=== PATIENT | male | born 1975 | race Caucasian/White ===

== ENCOUNTER 2019-06-09 18:36 | Inpatient (IN) | payer BC ==
[2019-06-09 19:29] LABS: ABS Basophils 0.1 10^3/ul (0-0.2); ABS Lymphocytes 1.4 10^3/ul (1.0-4.8); ABS Neutrophils 11.3 10^3/ul (1.5-7.7); Eosinophil % 0.1 %; Hematocrit 40 % (42-52); Hemoglobin 14.1 g/dL (14.0-18.0); Lymphocyte % 10.1 %; Mean Corpuscular HGB Conc 35 g/dL (31-36); Mean Corpuscular Hemoglobin 32 pg (27-31); Mean Corpuscular Volume 91 fL (80-94); Mean Platelet Volume 8.1 fL (7.4-10.4); Platelet Count 155 10^3/uL (150-450); Red Blood Count 4.43 10^6 /uL (4.18-5.48); Red Cell Distribution Width 13 % (10-15); White Blood Count 13.9 10^3/uL (3.5-10.8)
[2019-06-09 19:48] LABS: Albumin 4.2 g/dL (3.2-5.2); Albumin/Globulin Ratio 1.5 (1-3); BUN/Creatinine Ratio 13.8 (8-20); C Reactive Protein 122.78 mg/L (<8.01); Calcium 8.5 mg/dL (8.6-10.3); EGFR Non-African American 86.8 (>60); Globulin 2.8 g/dL (2-4); Potassium 3.6 mmol/L (3.5-5.0); Total Bilirubin 1.4 mg/dL (0.2-1.0)
[2019-06-09] MEDS ORDERED: Ketorolac INJ* 30 MG/ML 1 ML VIAL IV PUSH ONE (21:44)
[2019-06-09] MEDS: NS 0.9% 1000 ML** 2,000 ML IV ONE ×2 (21:50→22:28)
--- NOTE | 2019-06-09 22:23 | ED ---
GI/ HPI - HPI Summary HPI Summary: 44-year-old male presents with abdominal pain for the past 2 days. He states it is located across his lower abdomen. He states that is pretty sharp in nature. He states the pain is pretty severe. He denies any chest pressures or shortness breath. No urinary symptoms. Has never had this pain before. Does have a family history of diverticulitis. No previous abdominal surgeries. He states he's been constipated but has been passing gas. - History of Current Complaint Chief Complaint: EDAbdPain Time Seen by Provider: 06/09/19 21:33 Stated Complaint: ABD PAIN PER PT Pain Intensity: 7 - Allergy/Home Medications Allergies/Adverse Reactions: Allergies Allergy/AdvReac Type Severity Reaction Status Date / Time No Known Allergies Allergy Verified 06/09/19 18:41 Home Medications: Home Medications Acetaminophen TAB* [Tylenol TAB*] 650 mg PO Q4H PRN 06/09/19 [History Confirmed 06/09/19] PMH/Surg Hx/FS Hx/Imm Hx Endocrine/Hematology History: Denies: Hx Anticoagulant Therapy Respiratory History: Denies: Hx Asthma Sensory History: Reports: Hx Contacts or Glasses - GLASSES Denies: Hx Hearing Aid Opthamlomology History: Reports: Hx Contacts or Glasses - GLASSES Neurological History: Reports: Hx Migraine - OCCASIONAL - Surgical History Surgery Procedure, Year, and Place: 30 YRS AGO [facility] 8 YS OLD-. ARTH KNEE SURG - [place]. NASAL FX- [place]. vasectomy Hx Anesthesia Reactions: No Infectious Disease History: No Infectious Disease History: Denies: Traveled Outside the [place] in Last 30 Days - Family History Known Family History: Positive: Non-Contributory - Social History Alcohol Use: Occasionally Alcohol Amount: 2-3 DRINKS/WEEK Substance Use Type: Reports: None Smoking Status (MU): Never Smoked Tobacco Have You Smoked in the Last Year: No Review of Systems Negative: Fever Negative: Chest Pain Negative: Shortness Of Breath Positive: Abdominal Pain, Nausea. Negative: Vomiting, Diarrhea Positive: Headache All Other Systems Reviewed And Are Negative: Yes Physical Exam Triage Information Reviewed: Yes Vital Signs On Initial Exam: Initial Vitals Temp Pulse Resp BP Pulse Ox 98.3 F 82 16 135/90 98 06/09/19 18:38 06/09/19 18:38 06/09/19 18:38 06/09/19 18:38 06/09/19 18:38 Vital Signs Reviewed: Yes Appearance: Positive: Well-Appearing Skin: Positive: Warm, Dry Head/Face: Positive: Normal Head/Face Inspection Eyes: Positive: Normal, Conjunctiva Clear ENT: Positive: Pharynx normal Respiratory/Lung Sounds: Positive: Clear to Auscultation, Breath Sounds Present Cardiovascular: Positive: Normal, RRR Abdomen Description: Positive: Soft, Other: - tenderness in lower abd Bowel Sounds: Positive: Present Musculoskeletal: Positive: Normal Neurological: Positive: Normal Psychiatric: Positive: Normal Diagnostics - Vital Signs Vital Signs Temp Pulse Resp BP Pulse Ox 06/09/19 21:06 99.1 F 85 18 120/86 99 06/09/19 18:38 98.3 F 82 16 135/90 98 - Laboratory Lab Results: Lab Results 06/09/19 06/09/19 06/09/19 Range/Units 19:19 19:19 19:19 WBC 13.9 H (3.5-10.8) 10^3/uL RBC 4.43 (4.18-5.48) 10^6 /uL Hgb 14.1 (14.0-18.0) g/dL Hct 40 L (42-52) % MCV 91 (80-94) fL MCH 32 H (27-31) pg MCHC 35 (31-36) g/dL RDW 13 (10-15) % Plt Count 155 (150-450) 10^3/uL MPV 8.1 (7.4-10.4) fL Neut % (Auto) 81.6 % Lymph % (Auto) 10.1 % Will % (Auto) 7.4 % Eos % (Auto) 0.1 % Baso % (Auto) 0.8 % Absolute Neuts (auto) 11.3 H (1.5-7.7) 10^3/ul Absolute Lymphs (auto) 1.4 (1.0-4.8) 10^3/ul Absolute Monos (auto) 1.0 H (0-0.8) 10^3/ul Absolute Eos (auto) 0.0 (0-0.6) 10^3/ul Absolute Basos (auto) 0.1 (0-0.2) 10^3/ul Absolute Nucleated RBC 0.0 10^3/ul Nucleated RBC % 0.0 Sodium 137 (135-145) mmol/L Potassium 3.6 (3.5-5.0) mmol/L Chloride 102 (101-111) mmol/L Carbon Dioxide 30 (22-32) mmol/L Anion Gap 5 (2-11) mmol/L BUN 13 (6-24) mg/dL Creatinine 0.94 (0.67-1.17) mg/dL Est GFR ( Amer) 105.0 (>60) Est GFR (Non-Af Amer) 86.8 (>60) BUN/Creatinine Ratio 13.8 (8-20) Glucose 102 H (70-100) mg/dL Lactic Acid 0.9 (0.5-2.0) mmol/L Calcium 8.5 L (8.6-10.3) mg/dL Total Bilirubin 1.40 H (0.2-1.0) mg/dL AST 15 (13-39) U/L ALT 14 (7-52) U/L Alkaline Phosphatase 76 (34-104) U/L C-Reactive Protein 122.78 H (<8.01) mg/L Total Protein 7.0 (6.4-8.9) g/dL Albumin 4.2 (3.2-5.2) g/dL Globulin 2.8 (2-4) g/dL Albumin/Globulin Ratio 1.5 (1-3) Lipase 20 (11.0-82.0) U/L Result Diagrams: 06/09/19 19:19 06/09/19 19:19 Lab Statement: Any lab studies that have been ordered have been reviewed, and results considered in the medical decision making process. - CT abd CT Interpretation Completed By: Radiologist Summary of CT Findings: IMPRESSION: 1. Findings consistent with acute sigmoid diverticulitis with contained perforation. No evidence of abscess. As an underlying malignancy cannot be entirely excluded, a follow-up examination after a course of treatment is recommended if clinically warranted. 2. Small amount of free intraperitoneal fluid. Re-Evaluation - Re-Evaluation First Eval Re-Evaluation Time: 22:57 Change: Improved Comment: feeling better Second Eval Re-Evaluation Time: 00:51 Comment: discussed results, pain is returning GIGU Course/Dx - Course Course Of Treatment: 44-year-old male presents with abdominal pain for the past 2 days. He states it is located across his lower abdomen. He states that is pretty sharp in nature. He states the pain is pretty severe. He denies any chest pressures or shortness breath. No urinary symptoms. Has never had this pain before. Does have a family history of diverticulitis. No previous abdominal surgeries. He states he's been constipated but has been passing gas. On exam tenderness lower abdomen. wbc 13. crp elevated. electrolytes normal. CT shows sigmoid diverticulitis with microperfortation. discussed case with dr norwood who agrees to admit. - Diagnoses Differential Diagnoses - Male: Colitis, Diverticulosis, Urinary Tract Infection Provider Diagnoses: Perforation of sigmoid colon due to diverticulitis Discharge ED - Sign-Out/Discharge Documenting (check all that apply): Patient Departure - Discharge Plan Condition: Stable Disposition: ADMITTED TO [facility] - Billing Disposition and Condition Condition: STABLE Disposition: Admitted to [facility]
[2019-06-09] MEDS ORDERED: Iohexol 300* (CONTRAST) 10 ML SDV IV ONE (23:46)
[2019-06-10] MEDS ORDERED: metroNIDAZOLE IV 500 MG/100ML* 500 MG/100 ML BAG IVPB ONE (00:45)
[2019-06-10] MEDS ORDERED: cefTRIAXone(*) 1 GM in NS 0.9% 50 ML* 50 ML IVPB ONE (00:50)
[2019-06-10] MEDS ORDERED: Morphine 4 MG/ML VIAL (1 ml) 4 MG/ML VIAL IV ONE (00:50)
[2019-06-10] MEDS ORDERED: Ondansetron INJ* 2 MG/ML VIAL IV ONE (00:50)
[2019-06-10] MEDS ORDERED: Morphine 4 MG/ML VIAL (1 ml) 4 MG/ML VIAL IV PRN (01:58)
[2019-06-10] MEDS ORDERED: cefTRIAXone(*) 1 GM ADVAN/BAG ONE (02:12)
[2019-06-10 03:51] LABS: Urine Appearance Clear; Urine Bilirubin Negative (Negative); Urine Blood Negative (Negative); Urine Color Yellow; Urine Glucose Negative (Negative); Urine Ketones Trace (Negative); Urine Nitrite Negative (Negative); Urine Protein Negative (Negative); Urine Specific Gravity 1.059 (1.010-1.030); Urine Urobilinogen Negative (Negative)
--- NOTE | 2019-06-10 04:24 | HP ---
CC: Dr. Leon * HISTORY AND PHYSICAL: DATE OF ADMISSION: 06/10/19 PRIMARY CARE PROVIDER: Dr. Leon. CHIEF COMPLAINT: Abdominal pain. HISTORY OF PRESENT ILLNESS: Mr. Gallagher is a 44-year-old male who states he was eating dinner on 06/07/19 when he started to develop left lower quadrant abdominal pain. He states the pain got progressively worse over the last 2 days. He describes the pain as severe cramping as if he needs to have on urgent bowel movement. He notes that on the evening of 06/08/19, he had a fever of 102.5 at home. Due to the progressive pain, he presented to the emergency room for evaluation. He also notes that his abdomen feels distended. He has not really been moving his bowels, but states that when he does try to go, he passes quite a bit of gas and just a little bit of liquid. There has been no blood in the stool. PAST MEDICAL HISTORY: Migraines. PAST SURGICAL HISTORY: 1. Arthroscopic knee surgery. 2. Inguinal hernia repair. 3. Cystectomy. MEDICATIONS: P.r.n. Advil. ALLERGIES: No known drug allergies. FAMILY HISTORY: Mom is living, she is in her 60s and has OA. Dad is also living in his 60s and healthy. SOCIAL HISTORY: The patient does not smoke. He drinks alcohol rarely. 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 He is . He has 2 children. His is his healthcare proxy. REVIEW OF SYSTEMS: A complete 11-system review of systems is obtained. Pertinent positives and negatives are as per HPI and otherwise negative. PHYSICAL EXAMINATION GENERAL: The patient is a well-developed, middle-aged male, seen lying flat in the stretcher, in no acute distress. VITAL SIGNS: Blood pressure 108/56, pulse 69, respirations 20, temp 99.1, O2 sat 99% on room air. HEENT: Pupils are equal and round. Extraocular muscles are intact. Oropharynx is clear. Oral mucosa is moist. There is no submandibular, cervical , or supraclavicular adenopathy. Thyroid is not enlarged. No thyroid nodules noted. PULMONARY: Lungs are clear to auscultation bilaterally. CARDIAC: Normal S1, S2. Regular rate and rhythm. I do not appreciate any murmurs. There is no lower extremity edema. ABDOMEN: Bowel sounds are present. Abdomen is mildly distended. He is mildly tender to palpation diffusely, but worse in the left lower quadrant (of note, the patient recently had morphine, states his pain is under much better control) . MUSCULOSKELETAL: There is no cyanosis or clubbing of the digits. There is full active range of motion of all 4 extremities. NEURO: Cranial nerves II through XII are grossly intact. Sensation is intact to light touch throughout. PSYCH: The patient is alert. He is oriented x3. Affect appears appropriate. SKIN: Warm and dry. There are no rashes. DIAGNOSTIC STUDIES/LAB DATA: WBC 13.9, hemoglobin 14.1, hematocrit 40, platelets 155. Sodium 137, potassium 3.6, chloride 102, CO2 of 30, BUN 13, creatinine 0.94, glucose 102, lactic acid 0.9, calcium 8.5. Bilirubin 1.4, AST 15, ALT 14, alk phos 76, CRP 122.78, albumin is 4.2, lipase 20. CT abdomen and pelvis, findings consistent with acute sigmoid diverticulitis with contained perforation. No evidence of abscess. An underlying malignancy cannot be excluded. A followup examination after a course of treatment is recommended if clinically warranted. There is a small amount of free intraperitoneal fluid. ASSESSMENT AND PLAN: Mr. Gallagher is a 44-year-old male with no significant past medical history who presents to the emergency room with complaints of progressive left lower quadrant abdominal pain, was found to have acute diverticulitis with microperforation. 1. Acute diverticulitis with microperforation. At this point, the patient will be admitted to the hospital for IV antibiotics and IV fluids. He will be on clear liquid diet. He will be receiving Cipro and Flagyl IV. General Surgery consultation should be called later this morning. We will continue p.r.n. morphine for pain control as he states that his pain is now manageable after the morphine in the emergency room. 2. Migraines. The patient utilizes p.r.n. NSAIDs for pain. This will be held while hospitalized, but he can resume on discharge. 3. DVT prophylaxis. According to the Adult Thrombosis Prophylaxis Risk Factor Assessment Guide, the patient has a total risk factor score of 2, making him moderate risk. He will be started on Lovenox 40 mg subcutaneous daily. 4. Code status is full. TIME SPENT: Fifty minutes was spent admitting this patient. [id number]/[facility] #: [id number] [facility]
[2019-06-10] MEDS: Ciprofloxacin 400MG IVPREMIX(* 400 MG/200 ML BAG IVPB SCH ×2 (06:30→17:36)
[2019-06-10] MEDS ORDERED: Ketorolac INJ* 30 MG/ML 1 ML VIAL IV PUSH STA (08:19)
--- NOTE | 2019-06-10 08:33 | PN ---
Subjective Date of Service: 06/10/19 Interval History: Patient complained of headache, frontal mainly, non pulsatile. He had history of migraine, was on prophylatic med before. His abdominal pain is mainly left lower quadrant, improving with morphine. Objective Active Medications: Enoxaparin Sodium (Lovenox(*)) 40 mg SUBCUT Q24H ON LICENSE OF [facility] Sodium Chloride (Ns 0.9% 1000 Ml) 1,000 mls @ 100 mls/hr IV PER RATE ON LICENSE OF [facility] Ciprofloxacin/Dextrose (Cipro 400 Mg Ivpremix(*)) 400 mg in 200 mls @ 200 mls/ hr IVPB Q12H ON LICENSE OF [facility]; Protocol Last Admin: 06/10/19 06:30 Dose: 200 mls/hr Metronidazole/Sodium Chloride (Flagyl 500 Mg Ivpb*) 500 mg in 100 mls @ 100 mls /hr IVPB Q12H ON LICENSE OF [facility] Morphine Sulfate (Morphine 4 Mg/Ml Vial (1 Ml)) 4 mg IV Q4H PRN PRN Reason: PAIN - SEVERE Vital Signs - 8 hr 06/10/19 06/10/19 06/10/19 00:42 00:58 01:04 Temperature Pulse Rate 75 78 Respiratory 20 Rate Blood Pressure (mmHg) O2 Sat by Pulse 97 96 Oximetry 06/10/19 06/10/19 06/10/19 01:18 01:48 02:01 Temperature Pulse Rate 77 80 80 Respiratory Rate Blood Pressure 127/73 104/56 (mmHg) O2 Sat by Pulse 95 97 95 Oximetry 06/10/19 06/10/19 06/10/19 02:18 02:24 03:06 Temperature 98.0 F Pulse Rate 76 76 Respiratory 17 18 Rate Blood Pressure 112/71 112/71 (mmHg) O2 Sat by Pulse 97 98 Oximetry 06/10/19 03:20 Temperature 97.7 F Pulse Rate 76 Respiratory 17 Rate Blood Pressure 116/64 (mmHg) O2 Sat by Pulse 96 Oximetry Oxygen Devices in Use Now: None Exam: General - NAD, sick looking Eyes - PERRLA, EOM intact HEENT- no abnormality Lymph Nodes - No lymphadenopathy Cardiovascular - RRR no m/r/g, no JVD, no carotid bruits Lungs - Clear to auscltation, no use of acessory muscles, no crackles or wheezes. Skin - No rashes, skin warm and dry, no erythematous areas Abdomen: LLQ tenderness, no rebound tenderness, abdomen soft; shift dullness+. Extremeties - No edema, cyanosis or clubbing Musculo Skeletal - 5/5 strength, normal range of motion, no swollen or erythematous joints. Neurological Alert and oriented x 3, CN 2-12 grossly intact. Psychiatry- mood is good Result Diagrams: 06/09/19 19:19 06/09/19 19:19 Additional Lab and Data: Lab Results 06/09/19 06/09/19 06/09/19 Range/Units 19:19 19:19 19:19 WBC 13.9 H (3.5-10.8) 10^3/uL RBC 4.43 (4.18-5.48) 10^6 /uL Hgb 14.1 (14.0-18.0) g/dL Hct 40 L (42-52) % MCV 91 (80-94) fL MCH 32 H (27-31) pg MCHC 35 (31-36) g/dL RDW 13 (10-15) % Plt Count 155 (150-450) 10^3/uL MPV 8.1 (7.4-10.4) fL Neut % (Auto) 81.6 % Lymph % (Auto) 10.1 % [place] % (Auto) 7.4 % Eos % (Auto) 0.1 % Baso % (Auto) 0.8 % Absolute Neuts (auto) 11.3 H (1.5-7.7) 10^3/ul Absolute Lymphs (auto) 1.4 (1.0-4.8) 10^3/ul Absolute Monos (auto) 1.0 H (0-0.8) 10^3/ul Absolute Eos (auto) 0.0 (0-0.6) 10^3/ul Absolute Basos (auto) 0.1 (0-0.2) 10^3/ul Absolute Nucleated RBC 0.0 10^3/ul Nucleated RBC % 0.0 Sodium 137 (135-145) mmol/L Potassium 3.6 (3.5-5.0) mmol/L Chloride 102 (101-111) mmol/L Carbon Dioxide 30 (22-32) mmol/L Anion Gap 5 (2-11) mmol/L BUN 13 (6-24) mg/dL Creatinine 0.94 (0.67-1.17) mg/dL Est GFR ( Amer) 105.0 (>60) Est GFR (Non-Af Amer) 86.8 (>60) BUN/Creatinine Ratio 13.8 (8-20) Glucose 102 H (70-100) mg/dL Lactic Acid 0.9 (0.5-2.0) mmol/L Calcium 8.5 L (8.6-10.3) mg/dL Total Bilirubin 1.40 H (0.2-1.0) mg/dL AST 15 (13-39) U/L ALT 14 (7-52) U/L Alkaline Phosphatase 76 (34-104) U/L C-Reactive Protein 122.78 H (<8.01) mg/L Total Protein 7.0 (6.4-8.9) g/dL Albumin 4.2 (3.2-5.2) g/dL Globulin 2.8 (2-4) g/dL Albumin/Globulin Ratio 1.5 (1-3) Lipase 20 (11.0-82.0) U/L Assess/Plan/Problems-Billing Assessment: 44 y/o gentleman with minimal history presented with abdominal pain for 2 days duration, and fever. He was found to have acute diverticulitis with microperforation. - Patient Problems (1) Diverticulitis Current Visit: Yes Status: Acute Code(s): K57.92 - DVTRCLI OF INTEST, PART UNSP, W/O PERF OR ABSCESS W/O BLEED SNOMED Code(s): 298754472 Comment: Acute diverticulitis with microperforation IV cipro and flagyl iv morphine for pain control surgical consult today (2) Migraine Current Visit: Yes Status: Acute Code(s): G43.909 - MIGRAINE, UNSP, NOT INTRACTABLE, WITHOUT STATUS MIGRAINOSUS SNOMED Code(s): 15404888 (3) DVT prophylaxis Current Visit: Yes Status: Acute Code(s): Z29.9 - ENCOUNTER FOR PROPHYLACTIC MEASURES, UNSPECIFIED SNOMED Code(s): 704220918 Comment: sq Lovonox (4) Full code status Current Visit: Yes Status: Acute Code(s): Z78.9 - OTHER SPECIFIED HEALTH STATUS SNOMED Code(s): 793925071 Status and Disposition: Inpatient Medicine Attestation Documenting Resident: Shaniqua Hudson Supervising Physician: Osmin Sánchez Attending/Supervising Physician Comment: Migraine- Can use SC imitrex if headache worsening. For now, rectal acetaminophen may be helpful. Attestation: This service has been performed in part by a resident under the direction of a teaching physician.I, Osmin Sánchez, performed the service, or was physically present during the critical, or stout portions of the service, furnished by the resident. I participated in the management of the patient.
[2019-06-10] MEDS: NS 0.9% 1000 ML** 1,000 ML IV SCH ×2 (08:53→15:10)
--- NOTE | 2019-06-10 10:49 | CONS ---
CONSULTATION REPORT: DATE OF CONSULT: 06/10/19 CHIEF COMPLAINT: Abdominal pain, diverticulitis. HISTORY OF PRESENT ILLNESS: This is a pleasant 44-year-old gentleman who was admitted for treatment of diverticulitis by the hospitalist service. He has had pain since 06/07/19. He came into the emergency room last night. The pain has been progressive over the last 2 days in the left lower quadrant. There has been some cramping. He had a fever of 102.5 at home. He has had some bowel movements and flatus. PAST MEDICAL HISTORY: Migraines. PAST SURGICAL HISTORY: 1. Inguinal hernia repair as a child. 2. Cystectomy. 3. Arthroscopic knee surgery. MEDICATIONS: Advil p.r.n. ALLERGIES: No known drug allergies. FAMILY HISTORY: His father had diverticulitis. SOCIAL HISTORY: Nonsmoker. 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 REVIEW OF SYSTEMS: General: Denies weight loss and change of appetite. HEENT : No changes in vision, hearing, swallowing. No sore throat. Cardiac: No chest pain. Pulmonary: No cough. GI: No blood per rectum. : No hematuria. Skin: Denies rash. Neuro: No headache or dizziness. Musculoskeletal: No extremity weakness. Psych: No anxiety or depression. PHYSICAL EXAM: General: Pleasant gentleman complaining of a headache. He was lying in bed with an ice pack on his forehead. HEENT: The sclerae are anicteric. Oral mucosa is pink and moist. Neck is supple. Heart: Regular. Lungs are clear. Abdomen: Soft, nondistended. Tender in the left lower quadrant. No masses or organomegaly. Extremities: No clubbing, cyanosis, or edema. Neuro Exam: Grossly intact. No focal motor or sensory deficits. Skin : No rashes, petechiae, or jaundice. IMPRESSION: Diverticulitis. CT scan showed "microperforation" contained inflammation. No obvious abscess. He is clinically better than last night according to the patient. PLAN/RECOMMENDATIONS: Plan will be for a clear liquid diet to help with his migraines. He may have coffee. Serial abdominal examination and evaluation. Continue with broad spectrum IV antibiotics. He will need eventual colonoscopy , which I could do after an office visit when he has resolved this episode. He may need surgical intervention at some point. [id number]/[facility] #: [id number] MARCO A
[2019-06-10] MEDS: metroNIDAZOLE IV 500 MG/100ML* 500 MG/100 ML BAG IVPB SCH (13:19)
[2019-06-10] MEDS: Ibuprofen ADULT LIQ* 600 MG/30 ML UDC PO PRN (20:30)
[2019-06-10] MEDS: Enoxaparin(*) 40 MG/0.4 ML SYR SUBCUT SCH (20:31)
[2019-06-11] MEDS: metroNIDAZOLE IV 500 MG/100ML* 500 MG/100 ML BAG IVPB SCH ×2 (00:59→12:37)
[2019-06-11] MEDS: NS 0.9% 1000 ML** 1,000 ML IV SCH ×2 (03:18→16:37)
[2019-06-11] MEDS: Ciprofloxacin 400MG IVPREMIX(* 400 MG/200 ML BAG IVPB SCH ×2 (05:44→16:36)
[2019-06-11] MEDS: Ibuprofen ADULT LIQ* 600 MG/30 ML UDC PO PRN (09:55)
--- NOTE | 2019-06-11 11:30 | PN ---
Progress Note - Progress Note Date of Service: 06/11/19 SOAP: Subjective:minimal pain,tolerated a full liq breakfast;no nausea;having loose stools [] Objective: Vital Signs Temp 97.7 F 06/11/19 07:15 Pulse 62 06/11/19 07:15 Resp 20 06/11/19 08:00 BP 126/87 06/11/19 07:15 Pulse Ox 100 06/11/19 07:15 Intake & Output 06/10/19 06/11/19 06/11/19 18:59 06:59 18:59 Intake Total 2699 855 1440 Balance 2699 855 1440 Intake: IV Fluids 305 745 Ciprofloxacin 200 Flagyl 105 NS 745 IVPB 1124 110 Flagyl 110 NS 1124 Oral 1270 0 1440 Other: # Voids 1 abd:+bs,softly distended;minimal LLQ tenderness,no guarding,no mass effect [] Assessment:first episode of diverticulitis,microperf,no abscess;afebrile,feels better [] Plan:dispo per Hospitalist recommends 7days of Cipro and Flagyl when he is discharged I ordered a Nutrition consult for low fiber diet teaching I will schedule an office visit with in about 2-3 weeks []
--- NOTE | 2019-06-11 16:45 | PN ---
Subjective Date of Service: 06/11/19 Interval History: Patient still had abdominal pain, but less severe. Headache also improved, pain score 3-4/10. He is tolerating clear fluid diet, but noted diarrhea. He also complained of testicle swelling today, but no dysuria, no pain, no warmth over the area. Objective Active Medications: Enoxaparin Sodium (Lovenox(*)) 40 mg SUBCUT Q24H SHERLEY Last Admin: 06/10/19 20:31 Dose: 40 mg Sodium Chloride (Ns 0.9% 1000 Ml) 1,000 mls @ 100 mls/hr IV PER RATE SHERLEY Last Admin: 06/11/19 16:37 Dose: 100 mls/hr Ciprofloxacin/Dextrose (Cipro 400 Mg Ivpremix(*)) 400 mg in 200 mls @ 200 mls/ hr IVPB Q12H SHERLEY; Protocol Last Admin: 06/11/19 16:36 Dose: 200 mls/hr Metronidazole/Sodium Chloride (Flagyl 500 Mg Ivpb*) 500 mg in 100 mls @ 100 mls /hr IVPB Q12H SHERLEY Last Admin: 06/11/19 12:37 Dose: 100 mls/hr Ibuprofen (Motrin Liq Adult*) 600 mg PO TID PRN PRN Reason: MILD PAIN or TEMP > 100.4 Last Admin: 06/11/19 09:55 Dose: 600 mg Morphine Sulfate (Morphine 4 Mg/Ml Vial (1 Ml)) 4 mg IV Q4H PRN PRN Reason: PAIN - SEVERE Vital Signs - 8 hr 06/11/19 11:15 Temperature 98.2 F Pulse Rate 75 Respiratory 12 Rate Blood Pressure 134/79 (mmHg) O2 Sat by Pulse 99 Oximetry Oxygen Devices in Use Now: None Exam: General - NAD, sitting up in bed Eyes - PERRLA, EOM intact HEENT- no abnormality Cardiovascular - RRR no m/r/g, no JVD, no carotid bruits Lungs - Clear to auscltation, no use of acessory muscles, no crackles or wheezes. Skin - No rashes, skin warm and dry, no erythematous areas Abdomen - tenderness over LLQ and RLQ, rebound tenderness+, no rigidity Extremeties - No edema, cyanosis or clubbing Musculo Skeletal - 5/5 strength, normal range of motion, no swollen or erythematous joints Neurological Alert and oriented x 3, CN 2-12 grossly intact. Genital- no testicle swelling or color change seen. Result Diagrams: 06/09/19 19:19 06/09/19 19:19 Additional Lab and Data: Lab Results 06/09/19 06/09/19 06/09/19 Range/Units 19:19 19:19 19:19 WBC 13.9 H (3.5-10.8) 10^3/uL RBC 4.43 (4.18-5.48) 10^6 /uL Hgb 14.1 (14.0-18.0) g/dL Hct 40 L (42-52) % MCV 91 (80-94) fL MCH 32 H (27-31) pg MCHC 35 (31-36) g/dL RDW 13 (10-15) % Plt Count 155 (150-450) 10^3/uL MPV 8.1 (7.4-10.4) fL Neut % (Auto) 81.6 % Lymph % (Auto) 10.1 % Hemphill % (Auto) 7.4 % Eos % (Auto) 0.1 % Baso % (Auto) 0.8 % Absolute Neuts (auto) 11.3 H (1.5-7.7) 10^3/ul Absolute Lymphs (auto) 1.4 (1.0-4.8) 10^3/ul Absolute Monos (auto) 1.0 H (0-0.8) 10^3/ul Absolute Eos (auto) 0.0 (0-0.6) 10^3/ul Absolute Basos (auto) 0.1 (0-0.2) 10^3/ul Absolute Nucleated RBC 0.0 10^3/ul Nucleated RBC % 0.0 Sodium 137 (135-145) mmol/L Potassium 3.6 (3.5-5.0) mmol/L Chloride 102 (101-111) mmol/L Carbon Dioxide 30 (22-32) mmol/L Anion Gap 5 (2-11) mmol/L BUN 13 (6-24) mg/dL Creatinine 0.94 (0.67-1.17) mg/dL Est GFR ( Amer) 105.0 (>60) Est GFR (Non-Af Amer) 86.8 (>60) BUN/Creatinine Ratio 13.8 (8-20) Glucose 102 H (70-100) mg/dL Lactic Acid 0.9 (0.5-2.0) mmol/L Calcium 8.5 L (8.6-10.3) mg/dL Total Bilirubin 1.40 H (0.2-1.0) mg/dL AST 15 (13-39) U/L ALT 14 (7-52) U/L Alkaline Phosphatase 76 (34-104) U/L C-Reactive Protein 122.78 H (<8.01) mg/L Total Protein 7.0 (6.4-8.9) g/dL Albumin 4.2 (3.2-5.2) g/dL Globulin 2.8 (2-4) g/dL Albumin/Globulin Ratio 1.5 (1-3) Lipase 20 (11.0-82.0) U/L Assess/Plan/Problems-Billing Assessment: 44 y/o gentleman with minimal history presented with abdominal pain for 2 days duration, and fever. He was found to have acute diverticulitis with microperforation. - Patient Problems (1) Diverticulitis Current Visit: Yes Status: Acute Code(s): K57.92 - DVTRCLI OF INTEST, PART UNSP, W/O PERF OR ABSCESS W/O BLEED SNOMED Code(s): 317151020 Comment: Acute diverticulitis with microperforation for medical management for now, may need surgical management later on IV cipro and flagyl for 7 days advance diet (2) Migraine Current Visit: Yes Status: Acute Code(s): G43.909 - MIGRAINE, UNSP, NOT INTRACTABLE, WITHOUT STATUS MIGRAINOSUS SNOMED Code(s): 97419513 Comment: ibuprofen for pain control bad exprience imitrex before (3) DVT prophylaxis Current Visit: Yes Status: Acute Code(s): Z29.9 - ENCOUNTER FOR PROPHYLACTIC MEASURES, UNSPECIFIED SNOMED Code(s): 914880509 Comment: sq Lovonox (4) Full code status Current Visit: Yes Status: Acute Code(s): Z78.9 - OTHER SPECIFIED HEALTH STATUS SNOMED Code(s): 267850524 Status and Disposition: Inpatient Medicine, aim for discharge once patient able to tolerate diet. Attestation Documenting Resident: Shaniqua Hudson Supervising Physician: Osmin Sánchez Attestation: This service has been performed in part by a resident under the direction of a teaching physician.I, Osmin Sánchez, performed the service, or was physically present during the critical, or stout portions of the service, furnished by the resident. I participated in the management of the patient.
[2019-06-11] MEDS: Enoxaparin(*) 40 MG/0.4 ML SYR SUBCUT SCH (22:01)
[2019-06-12] MEDS: metroNIDAZOLE IV 500 MG/100ML* 500 MG/100 ML BAG IVPB SCH (01:40)
[2019-06-12] MEDS: Ciprofloxacin 400MG IVPREMIX(* 400 MG/200 ML BAG IVPB SCH (06:05)
[2019-06-12] MEDS: Ibuprofen ADULT LIQ* 600 MG/30 ML UDC PO PRN (06:08)
--- NOTE | 2019-06-12 10:47 | PN ---
Progress Note - Progress Note Date of Service: 06/12/19 SOAP: Subjective: Migraine headache is main complaint Abd pain much improved-tolerating liquids, loose bowel movements Objective: Temp Pulse Resp BP Pulse Ox 98.4 F 54 18 122/76 96 06/12/19 07:15 06/12/19 07:15 06/12/19 07:15 06/12/19 07:15 06/12/19 07:15 PEX: Comfortable Abd is soft and non-distended. Bowel sounds are present. No tenderness LLQ, no mass Assessment: Sigmoid diverticulitis-improving Tolerating po Plan: OK for D/C from surgical standpoint on oral antibiotics Low residue diet Surgical follow up in office arranged-see d/c plan documentation He will require colonoscopy when completely recovered.
[2019-06-12 11:46] VITALS: BP 154/87
--- NOTE | 2019-06-13 12:36 | DS ---
CC: Dr. Leon [facility] DISCHARGE SUMMARY: DATE OF ADMISSION: 06/10/19 DATE OF DISCHARGE: 06/12/19 PRIMARY DIAGNOSIS: Diverticulitis with microperforation. SECONDARY DIAGNOSES: 1. Migraine headaches. 2. Overweight. 3. Osteoarthritis. MEDICATIONS ON DISCHARGE: 1. Tylenol 650 mg p.o. q.4 hours p.r.n. pain. 2. Ibuprofen 600 mg p.o. q.6 hours p.r.n. pain. 3. Ciprofloxacin 500 mg p.o. b.i.d. 4. Metronidazole 500 mg p.o. t.i.d. for 5 days. 5. Zolmitriptan 2.5 mg 1 tab every 2 hours, MDD 2, p.r.n. for migraines. HOSPITAL COURSE: A 44-year-old man with medical history notable for migraines [facility] lower quadrant pain worsening over 2 days. He had a temperature of 102 .5 at home. Initial white count was 13.9, hematocrit was 40%; electrolytes essentially normal; lacti c acid 0.9. His CT abdomen and pelvis showed acute sigmoid diverticulitis with a small perforation, no abscess formation. The patient was admitted to the hospital and treated with intravenous Cipro an d Flagyl. General surgery consultation was obtained with Dr. Diaz, who reviewed the CT scan and patient exam, recommended continued broad- spectrum antibiotics. He also advised the patient have a colonoscopy in several weeks when the clinical syndrome is cleared. The patient improved steadily with intravenous antibiotics treatment and was able to tolerate liquid diet upon discharge. The patient also had significant migraine headaches which were treated with ibuprofen and Tylenol. T he patient has had some mood changes with Imitrex in the past. We decided to offer him a trial of zo lmitriptan on discharge. DISPOSITION: To home. CONDITION: Stable. STATUS: Inpatient. DIET: Low fiber. ACTIVITY: As tolerated. [id number]/[facility] #: [id number]
== END 2019-06-12 13:50 | disposition home or self-care (01) | DRG 244 ==
LOC: ED 18:36 → MED 06-10 01:58
PROVIDERS: ADMIT Hospitalist; ATTEND Internal Medicine
DX: K57.20 Diverticulitis of large intestine with perforation and abscess without bleeding (principal); E66.3 Overweight; M19.90 Unspecified osteoarthritis, unspecified site; G43.909 Migraine, unspecified, not intractable, without status migrainosus; Z68.28 Body mass index [BMI] 28.0-28.9, adult; Z79.1 Long term (current) use of non-steroidal anti-inflammatories (NSAID); Z82.61 Family history of arthritis
CPT/HCPCS: 36415; 74177; 80053; 81003; 83605; 83690; 85025; 86140; 99284; A9270-GY; J0696; J0744; J1650; J1885; J2270; J2405; Q9967

== ENCOUNTER 2019-08-08 09:07 | Emergency (ER) | payer BC ==
--- OUTSIDE RECORDS SUMMARY | 2019-08-08 09:14 | XMS REPORT | Continuity of Care Document ---
:1975 External Reference #:[id number] Author Name Kenneth Diaz MD (transmitted by agent of provider Gilma Bridges) Address [address] [place] [id number] Care Team Providers Name Role Phone Buffy Leon MD - Care Team Information External Relations Director Family Medicine Problems Description No Information Available Social History Type Date Description Comments Sex Unknown ETOH Use Occasionally consumes alcohol Tobacco Use Start: Unknown Patient has never smoked Smoking Status Reviewed: 06/29/19 Patient has never smoked Exercise Type/Frequency Exercises regularly Allergies, Adverse Reactions, Alerts Description No Known Drug Allergies Medications Active Medications SIG Qnty Indications Ordering Provider Date Advil as needed Unknown 200mg Tablets Zolmitriptan as directed Unknown 2.5mg Tablets Vitamins daily Unknown Fish Oil as directed Unknown Immunizations Description No Information Available Vital Signs Date Vital Result Comment 06/29/2019 9:40am Height 72 inches 6'0" Weight 207.00 lb Heart Rate 72 /min Respiratory Rate 12 /min Body Temperature 97.7 F BMI (Body Mass Index) 28.1 kg/m2 Results Description No Information Available Procedures Description No Information Available Medical Devices Description No Information Available Encounters Type Date Location Provider Dx Diagnosis Office Visit 06/12[facility] Sonu Campa K57.20 Dvtrcli of lg int 7:00a Of Jonny Baca MD w perforation and abscess w/o bleeding Office Visit 06/12/2019 [facility] Osmin Horowitz K57.20 Dvtrcli of lg int 1:07p Assoc,perri Sánchez M.D.,FACP w perforation and Hospitalists abscess w/o bleeding G43.909 Migraine, unsp, not intractable, without status migrainosus Office Visit 06/11/2019 [facility] Osmin Horowitz K57.20 Dvtrcli of lg int 1:06p Assning,perri Sánchez M.D.,FACP w perforation and Hospitalists abscess w/o bleeding G43.909 Migraine, unsp, not intractable, without status migrainosus Office Visit 06/11/2019 [facility]y Martinez K57.20 Dvtrcli of lg 7:00a [facility] NANCY Newell int w perforation and abscess w/o bleeding Office Visit 06/10/2019 [facility] Kenneth Rubi K57.20 Dvtrcli of lg 7:00a [facility] Diaz MD int w perforation and abscess w/o bleeding Office Visit 06/10/2019 [facility] Alaina Lino, K57.20 Dvtrcli of lg 1:05p Assoc,pc D.O. int w Hospitalists perforation and abscess w/o bleeding G43.909 Migraine, unsp, not intractable, without status migrainosus Assessments Date Code Description Provider 06/12/2019 K57.20 Diverticulitis of large intestine Sonu Baca MD with perforation and abscess without bleeding 06/12/2019 K57.20 Diverticulitis of large intestine Osmin Sánchez M.D., FACP with perforation and abscess without bleeding 06/12/2019 G43.909 Migraine, unspecified, not Osmin Sánchez M.D.,FACP intractable, without status migrainosus 06/11/2019 K57.20 Diverticulitis of large intestine Osmin Sánchez M.D., FACP with perforation and abscess without bleeding 06/11/2019 K57.20 Diverticulitis of large intestine Buffy Newell NP with perforation and abscess without bleeding 06/11/2019 G43.909 Migraine, unspecified, not Osmin Sánchez M.D.,FACP intractable, without status migrainosus 06/10/2019 K57.20 Diverticulitis of large intestine Kenneth Diaz MD with perforation and abscess without bleeding 06/10/2019 K57.20 Diverticulitis of large intestine Alaina Holland, D.O. with perforation and abscess without bleeding 06/10/2019 G43.909 Migraine, unspecified, not Alaina Armin Lino intractable, without status migrainosus Plan of Treatment No Information Available Functional Status Description No Information Available Mental Status Description No Information Available Referrals Description No Information Available
--- OUTSIDE RECORDS SUMMARY | 2019-08-08 09:14 | XMS REPORT | Summary of Care ---
:1975 Author Organization [facility] Address [address] [address] Care Team Providers Name Role Phone Buffy Leon MD Primary Care Provider Reason for Visit Reason Comments Hospital Follow Up diverticulitis Encounter Details Date Type Department Care Team Description 06/18/2019 Office Visit [facility] Practice Buffy Mackay MD Diverticulitis; [address] [facility] Chronic migraine without aura without status migrainosus, [place] [address] [phone] Allergies No Known Allergiesdocumented as of this encounter (statuses as of 06/18/2019) Medications Medication Sig Dispensed Refills Start Date End Date Status cyclobenzaprine Take 1 Tab by 10 Tab 0 08/31/2018 Active (FLEXERIL) 10 MG Oral mouth EVERY Tab BEDTIME NEEDED (jaw pain). zolmitriptan (ZOMIG) 2.5 Take 2.5 mg by 0 Active MG Oral Tab mouth [id number] MR. documented as of this encounter (statuses as of 06/18/2019) Active Problems Problem Noted Date Dyslipidemia 07/03/2016 Chronic migraine without aura without status migrainosus, not intractable documented as of this encounter (statuses as of 06/18/2019) Immunizations Name Administration Dates Next Due TDAP Vaccine 10/01/2018 documented as of this encounter Social History Tobacco Use Types Packs/Day Years Used Date Never Smoker Smokeless Tobacco: Never Used Alcohol Use Drinks/Week oz/Week Comments Yes 5 Standard drinks or equivalent 5.0 Sex Assigned at Date Recorded Not on file Job Start Date Occupation Industry Not on file Not on file Not on file Travel History Travel Start Travel End No recent travel history available. documented as of this encounter Last Filed Vital Signs Vital Sign Reading Time Taken Comments Blood Pressure 120/82 06/18/2019 11:22 AM EDT Pulse 69 06/18/2019 11:22 AM EDT Temperature 36.2 06/18/2019 11:22 AM EDT C (97.2 F) Respiratory Rate - - Oxygen Saturation 97% 06/18/2019 11:22 AM EDT Inhaled Oxygen Concentration - - Weight 98 kg (216 lb) 06/18/2019 11:22 AM EDT Height 180.3 cm (5' 11") 06/18/2019 11:22 AM EDT Body Mass Index 30.13 06/18/2019 11:22 AM EDT documented in this encounter Patient Instructions Patient InstructionsBuffy Leon MD - 06/18/2019 11:20 AM EDT Glad you are feeling better. I agree with a colonoscopy, see Dr Diaz in follow up. 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 This is caused by hard bowel movement, food, or bacteria that get stuck in the pockets. Signs and symptoms include the following: Pain in the lower left side of your abdomen Fever Nausea or vomiting Constipation or diarrhea An urge to urinate or have a bowel movement more often than usual Bloody bowel movements Bloating and gas Seek care immediately if: You have bowel movement or foul-smelling discharge leaking from your vagina or in your urine. You have severe diarrhea. You urinate less than usual or not at all. You are not able to have a bowel movement. You cannot stop vomiting. You have cramps or severe abdominal pain and a fever. You have new or increased blood in your bowel movements. Contact your healthcare provider if: You have pain when you urinate. Your symptoms get worse or do not go away. You have questions or concerns about your condition or care. Treatment may depend on how severe your diverticulitis is. You may need antibiotics to treat a bacterial infection. Take your medicine as directed. Call your healthcare provider if you think your medicine is not helping or if you have side effects. Tell him if you are allergic to any medicine. Keep alist of the medicines, vitamins, and herbs you take. Include the amounts, and when and why you take them. Bring the list or the pill bottles to follow-up visits. Carry your medicine list with you in case of an emergency. You may need surgery or other procedures to treat complications of diverticulitis. Clear liquid diet: A clear liquid diet includes any liquids that you can see through. Examples include water, jazmine-santa, cranberry or apple juice, frozen fruit ice, or broth. Stay on a clear liquid diet until your symptoms are gone, or as directed. Follow up with your healthcare provider as directed: You may need to follow up in 2 to 3 days for acolonoscopy. When your symptoms are gone, you may need a low -fat, high-fiber diet to prevent diverticulitis from developing again. Your healthcare provider or dietitian can help you create meal plans. Write down your questions so you remember to ask them during your visits. 2016 [employer]. Information is for End User's use only and may not be sold, redistributed or otherwise used for commercial purposes. All illustrations and images included in CareNotes are the copyrighted property of [employer]. or [employer]. The above information is an hospital aide only. It is not intended as medical advice for individual conditions or treatments. Talk to your doctor, nurse or pharmacist before following any medical regimen to see if it is safe and effective for you. documented in this encounter Progress Notes Buffy Leon MD - 06/18/2019 11:20 AM EDT Nursing Notes: Clementina Santiago LPN 06/18/2019 11:38 AM Signed Chief Complaint Patient presents with Hospital Follow Up diverticulitis Chief Complaint: Hospital Follow up, [facility] HPI: TCM Statement. Review of the hospitalization: I am seeing for transition of care following hospitalization. The date of discharge was: 06/10-06/12/19 The discharge diagnosis was Diverticulitis with microperforation, migraine, arthrtis. He was sent home on cipro, metronidazole which he finished yesterday, zolmitriptan. Consultands: Dr Diaz, general surgery. Patient has a follow up appointment and plan is a colonoscopy. Has appointment 06/29/19. CT abdomen: 06/09/19: Acute sigmoid diverticulitis, microperforation. No masses or enlarged LN. I reviewed the discharge summary, discharge instructions, and pertinent additional documentation obtained during hospitalization. I reconciled the medications. I also reviewed the Transition of Care documentation done by staff. The tests that were not available at the time of discharge were reviewed. Additional tests which are not yet available include: none Since hospitalization has patient improved? Improve, mildly sore No fevers. Current patient concerns: He does not like a mostly carb diverticulitis diet. He likes his vegetables and wants to resume them. Patient Active Problem List Diagnosis Chronic migraine without aura without status migrainosus, not intractable Dyslipidemia Past Medical History: Diagnosis Date BPH (benign prostatic hyperplasia) Dyslipidemia MIGRAINE 05/12/2008 diet restrictions have helped Viral wart on finger Past Surgical History: Procedure Laterality Date KNEE ARTHROSCOPY AGE 17 OPERATIONS ON NOSE AGE 17 nasal fracture repair [place] REPAIR SLIDING INGUINAL HERNIA AGE 5 LEFT VASECTOMY Outpatient Medications as of 06/18/2019 Medication Sig Dispense Refill cyclobenzaprine (FLEXERIL) 10 MG Oral Tab Take 1 Tab by mouth EVERY BEDTIME NEEDED (jaw pain). 10 Tab 0 No current facility-administered medications on file as of 06/18/2019. 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 Social Needs Financial resource strain: Not on file Food insecurity: Worry: Not on file Inability: Not on file Transportation needs: Medical: Not on file Non-medical: Not on file Tobacco Use Smoking status: Never Smoker Smokeless tobacco: Never Used Substance and Sexual Activity Alcohol use: Yes Alcohol/week: 5.0 standard drinks Types: 5 Standard drinks or equivalent per week Drug use: No Sexual activity: Yes Partners: Female Lifestyle Physical activity: Days per week: Not on file Minutes per session: Not on file Stress: Not on file Relationships Social connections: Talks on phone: Not on file Gets together: Not on file Attends tenriism service: Not on file Active member of club or organization: Not on file Attends meetings of clubs or organizations: Not on file Relationship status: Not on file Intimate partner violence: Fear of current or ex partner: Not on file Emotionally abused: Not on file Physically abused: Not on file Forced sexual activity: Not on file Other Topics Concern Back Care Not Asked Bike Helmet Not Asked Blood Transfusions Not Asked Caffeine Concern Not Asked Exercise Yes Comment: Hobby Hazards Not Asked International Travel Not Asked Service Not Asked Occupational Exposure Not Asked Seat Belt Not Asked Self-Exams Not Asked Sleep Concern Not Asked Special Diet Not Asked Stress Concern Not Asked Weight Concern Not Asked Social History Narrative . 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 Family History Problem Relation Age of Onset Arthritis Mother GI Father diverticulitis Psychiatry Sister depression Hypertension Brother No Known Problems Daughter Psychiatry Son depression Heart Maternal Grandfather OR x 4, age 55 Stroke Paternal Grandmother Health Maintenance Topic Date Due DIABETES SCREENING 1992 INFLUENZA VACCINE (1) 06/13/2019 DEPRESSION SCREENING 10/01/2019 LIPID DISORDER SCREENING 08/11/2023 HPV IMMUNIZATION SERIES Aged Out MENINGOCOCCAL VACCINE IMM Aged Out PNEUMOCOCCAL 0-64 YRS Aged Out ROS General ROS: negative for - chills or fever, unexpected weight changes ENT ROS: negative for - headaches, nasal congestion, nasal discharge, sinus pain , sore throat or visual changes Respiratory ROS: negative for - cough, shortness of breath Cardiovascular ROS: negative for - chest pain, dyspnea on exertion, edema or palpitations Gastrointestinal ROS: no change in bowel habits, or black or bloody stools; he is still a bit sore in his left lower quadrant, but overall improved Genito-Urinary ROS: no dysuria, trouble voiding Neuro: denies current headache, focal weakness, numbness Exam: BP 120/82 (BP Location: Right arm, Patient Position: Sitting) | Pulse 69 | Temp 97.2 F (36.2 C) | Ht 5' 11" (1.803 m) | Wt 216 lb (98 kg) | SpO2 97% | BMI 30.13 kg/m Physical Exam Physical Examination: General appearance - alert, well appearing, and in no distress Mental status - alert, oriented to person, place, and time, normal mood, behavior, speech, dress, motor activity, and thought processes Eyes - pupils equal, sclera anictericl Neck - supple, no cervical or supraclavicular adenopathy, carotids upstroke normal bilaterally, no bruits, thyroid exam: thyroid is normal in size without nodules or tenderness, no neck masses palpated. Chest/Lungs - clear to auscultation, no wheezes, rales or rhonchi, symmetric air entry, good aeration Heart - normal rate, regular rhythm, normal S1, S2, no murmurs, rubs, clicks or gallops Abdomen - soft, non tender on palpation, nondistended, no masses or hepatosplenomegaly, bowel soundsnormal, normal to percussion, no guarding or rebound. No costervertebral angle tenderness Neurological - alert, oriented, normal speech, no gross focal findings or movement disorder noted Extremities - dorsalis pedis pulses normal, no pedal edema, no clubbing or cyanosis ASSESSMENT/PLAN: ICD-9-CM ICD-10-CM 1. Hospital discharge follow-up V67.59 Z09 2. Diverticulitis 562.11 K57.92 3. Chronic migraine without aura without status migrainosus, not intractable 346.70 G43.709 Coordination of care. - I am satisfied that appropriate referrals are in place to deal with the problems identified during hospitalization, and that the patient has adequate community resources and support in place. I confirmed the patient's understanding of the diagnosis and plan of care. Specific education that was provided today: Patient Instructions Glad you are feeling better. I agree with a colonoscopy, see Dr Diaz in follow up. 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 This is caused by hard bowel movement, food, or bacteria that get stuck in the pockets. Signs and symptoms include the following: Pain in the lower left side of your abdomen Fever Nausea or vomiting Constipation or diarrhea An urge to urinate or have a bowel movement more often than usual Bloody bowel movements Bloating and gas Seek care immediately if: You have bowel movement or foul-smelling discharge leaking from your vagina or in your urine. You have severe diarrhea. You urinate less than usual or not at all. You are not able to have a bowel movement. You cannot stop vomiting. You have cramps or severe abdominal pain and a fever. You have new or increased blood in your bowel movements. Contact your healthcare provider if: You have pain when you urinate. Your symptoms get worse or do not go away. You have questions or concerns about your condition or care. Treatment may depend on how severe your diverticulitis is. You may need antibiotics to treat a bacterial infection. Take your medicine as directed. Call your healthcare provider if you think your medicine is not helping or if you have side effects. Tell him if you are allergic to any medicine. Keep alist of the medicines, vitamins, and herbs you take. Include the amounts, and when and why you take them. Bring the list or the pill bottles to follow-up visits. Carry your medicine list with you in case of an emergency. You may need surgery or other procedures to treat complications of diverticulitis. Clear liquid diet: A clear liquid diet includes any liquids that you can see through. Examples include water, jazmine-santa, cranberry or apple juice, frozen fruit ice, or broth. Stay on a clear liquid diet until your symptoms are gone, or as directed. Follow up with your healthcare provider as directed: You may need to follow up in 2 to 3 days for acolonoscopy. When your symptoms are gone, you may need a low -fat, high-fiber diet to prevent diverticulitis from developing again. Your healthcare provider or dietitian can help you create meal plans. Write down your questions so you remember to ask them during your visits. 2016 [employer]. Information is for End User's use only and may not be sold, redistributed or otherwise used for commercial purposes. All illustrations and images included in CareNotes are the copyrighted property of [employer] or [employer]. The above information is an hospital aide only. It is not intended as medical advice for individual conditions or treatments. Talk to your doctor, nurse or pharmacist before following any medical regimen to see if it is safe and effective for you. Author: Buffy Leon MD 06/18/2019 13:12 documented in this encounter Plan of Treatment Health Maintenance Due Date Last Done Comments DIABETES SCREENING 1992 INFLUENZA VACCINE (#1) 2019 DEPRESSION SCREENING 10/01/2019 10/01/2018 LIPID DISORDER SCREENING 08/11/2023 08/11/2018, 08/11/2018, 12/12/2004 HPV IMMUNIZATION SERIES Aged Out No longer eligible based on patient's age to complete this topic MENINGOCOCCAL VACCINE IMM Aged Out No longer eligible based on patient's age to complete this topic PNEUMOCOCCAL 0-64 YRS Aged Out No longer eligible based on patient's age to complete this topic documented as of this encounter Results Not on filedocumented in this encounter Visit Diagnoses Diagnosis Hospital discharge follow-up - Primary Other follow-up examination Diverticulitis Diverticulitis of colon (without mention of hemorrhage) Chronic migraine without aura without status migrainosus, not intractable Chronic migraine without aura, without mention of intractable migraine without mention of status migrainosus documented in this encounter Insurance Payer Benefit Plan / Subscriber ID Effective Dates Phone Address Type Group [employer]CIAL CIGNA [facility] xxxxxxxxxxx 2016-Present Cigna Guarantor Name Account Type Relation to Date of Phone Billing Patient Address Ofelia Gallagher Personal/Family 1975 [phone] (Home) [facility] [phone] [place], [place] (Work) [id number] documented as of this encounter
[2019-08-08 09:21] VITALS: BP 109/76
--- NOTE | 2019-08-08 09:35 | UC ---
Skin Complaint HPI - HPI Summary HPI Summary: 44 yo man, removed tick from his lleft upper arm this morning, and presents for assessment and advice. No history of Lyme diease. Tick removed intact and living--looks like an non-engorged deer tick. - History of Current Complaint Time Seen by Provider: 08/08/19 09:19 Stated Complaint: TICK BITE Hx Obtained From: Patient Onset/Duration: Sudden Onset, Lasting Days Skin Exposure Onset/Duration: Hours Ago Timing: Constant Onset Severity: Mild Current Severity: Mild Pain Intensity: 1 Location: Discrete Aggravating Factor(s): Nothing Alleviating Factor(s): Nothing Associated Signs & Symptoms: Positive: Negative - Allergy/Home Medications Allergies/Adverse Reactions: Allergies Allergy/AdvReac Type Severity Reaction Status Date / Time No Known Allergies Allergy Verified 07/28/19 15:33 PMH/Surg Hx/FS Hx/Imm Hx Previously Healthy: Yes Neurological History: Migraine Other History Of: Negative For: Anticoagulant Therapy - Surgical History Surgical History: Yes Surgery Procedure, Year, and Place: 30 YRS AGO HERNIA 7 YS OLD-. [place]TH KNEE SURG - [place]. NASAL FX- [place]. vasectomy - Family History Known Family History: Positive: Non-Contributory - Social History Occupation: Employed Full-time Lives: With Family Alcohol Use: Occasionally Alcohol Amount: 2-3 DRINKS/WEEK Substance Use Type: None Smoking Status (MU): Never Smoked Tobacco Have You Smoked in the Last Year: No - Immunization History Most Recent Influenza Vaccination: never Most Recent Pneumonia Vaccination: never Review of Systems All Other Systems Reviewed And Are Negative: Yes Constitutional: Positive: Negative Skin: Positive: Other - erythema at site of tick removal Motor: Positive: Other - tends to feel achey due to active lifestyle. Neurovascular: Positive: Negative Is Patient Immunocompromised?: No Physical Exam Triage Information Reviewed: Yes Appearance: Well-Appearing, No Pain Distress Vital Signs: Initial Vital Signs Temp 97.8 F 08/08/19 09:13 Pulse 78 08/08/19 09:13 Resp 16 08/08/19 09:13 BP 109/76 08/08/19 09:13 Pulse Ox 97 08/08/19 09:13 ENT: Positive: Pharynx normal Neck: Positive: Supple, Nontender, No Lymphadenopathy Respiratory: Positive: Lungs clear, Normal breath sounds Cardiovascular Exam: Normal Abdominal Exam: Normal Musculoskeletal Exam: Normal Neurological Exam: Normal Skin Exam: Other - 1 cm area of erythema and mild induration upper posterior left arm, triceps area. Course/Dx - Course Course Of Treatment: Single dose doxycycline for Lyme prophylaxis. Reviewed other Lyme borne illnesses. - Differential Diagnoses - Skin Complaint Differential Diagnoses: Cellulitis, Tick Born Illness, Other - tic bite - Diagnoses Provider Diagnosis: Tick bite of left upper arm Discharge ED - Sign-Out/Discharge Documenting (check all that apply): Patient Departure All imaging exams completed and their final reports reviewed: No Studies - Discharge Plan Condition: Good Disposition: HOME Prescriptions: Doxycycline Hyclate 200 mg PO ONCE #2 tablet Patient Education Materials: Tick Bite (ED) Referrals: Buffy Leon MD [Primary Care Provider] - Additional Instructions: single dose of doxycycline for prevention of Lyme disease has been prescribed. This is about 80% effective in decreasing the risk of Lyme disease should this be a tick which is infected with the bacteria. Observe for any rash, joint pains or fever, and follow up here or with your primary doctor as needed. - Billing Disposition and Condition Condition: GOOD Disposition: Home
== END 2019-08-08 09:45 | disposition home or self-care (01) ==
LOC: UCEAST 09:07
DX: S40.862A Insect bite (nonvenomous) of left upper arm, initial encounter (principal); W57.XXXA Bitten or stung by nonvenomous insect and other nonvenomous arthropods, initial encounter
CPT/HCPCS: 99212; G0463

== ENCOUNTER 2019-10-16 23:15 | Emergency (ER) | payer BC ==
--- OUTSIDE RECORDS SUMMARY | 2019-10-16 23:24 | XMS REPORT | Summary of Care ---
:1975 Author Organization [facility] Address [address] [address] Care Team Providers Name Role Phone Buffy Leon MD Primary Care Provider Reason for Visit Reason Comments Other stomach cramps, thinks its diverticulitis flair up, started 5:30am this morning Encounter Details Date Type Department Care Team Description 10/15/2019 Office Visit [facility], Acute diverticulitis ( Primary Dx); Practice Buffy Mackay MD Sigmoid diverticulosis [address] [place] [address] [place] [address] [phone] Allergies No Known Allergiesdocumented as of this encounter (statuses as of 10/15/2019) Medications Medication Sig Dispensed Refills Start Date End Date Status cyclobenzaprine Take 1 Tab by 10 Tab 0 08/31/2018 Active (FLEXERIL) 10 MG Oral mouth EVERY Tab BEDTIME NEEDED (jaw pain). zolmitriptan (ZOMIG) Take 2.5 mg by 0 Active 2.5 MG Oral Tab mouth X1PRN MR. amoxicillin-clavulanic Take 1 Tab by 20 Tab 0 10/15/2019 10/25/2019 Active acid (AUGMENTIN 875 MG) mouth TWICE 875-125 MG Oral DAILY for 10 TabIndications: Acute days. Take with diverticulitis food documented as of this encounter (statuses as of 10/15/2019) Active Problems Problem Noted Date Sigmoid diverticulosis 10/15/2019 Dyslipidemia 07/03/2016 Chronic migraine without aura without status migrainosus, not intractable documented as of this encounter (statuses as of 10/15/2019) Immunizations Name Administration Dates Next Due TDAP [...] Sign Reading Time Taken Comments Blood Pressure 132/74 10/15/2019 2:38 PM EST Pulse 76 10/15/2019 2:38 PM EST Temperature 36.6 10/15/2019 2:38 PM EST C (97.9 F) Respiratory Rate 20 10/15/2019 2:38 PM EST Oxygen Saturation 99% 10/15/2019 2:38 PM EST Inhaled Oxygen Concentration - - Weight 98.6 kg (217 lb 6.4 oz) 10/15/2019 2:38 PM EST Height 180.3 cm (5' 11") 10/15/2019 2:38 PM EST Body Mass Index 30.32 10/15/2019 2:38 PM EST documented in this encounter Patient Instructions Patient InstructionsBuffy Leon MD - 10/15/2019 2:40 PM ESTYou appear to have early acute diverticulitis. Start Augmentin 875 mg twice daily (amoxicillin/clavulanic acid) for 10 days. Take with a little food as it can upset your stomach and cause diarrhea. If you worsen, have severe pain, fever over 101, then please report to the ER. Follow a liquid diet for 24 hours, then a bland diet, no raw vegetables for 1-2 weeks. Advance dietslowly as tolerated. Stay hydrated Patient Education Diverticulitis The Basics Written by the doctors and editors at [facility] What is diverticulitis?Diverticulitis is a disorder that can cause belly pain, fever, and problems with bowel movements. The food we eat travels from the stomach through a long tube called the intestine. The last part of that tube is the colon (figure 1). The colon sometimes has small pouches in its vega. These pouches are called "diverticula. " Many people who have these pouches have no symptoms. Diverticulitis happenswhen these pouches develop a small tear also known as a "microperforation ," which then become infected and cause symptoms. What are the symptoms of diverticulitis?The most common symptom of diverticulitis is pain, which is usually in the lower part of the belly. Other symptoms can include: Fever Constipation Diarrhea Nausea and vomiting Is there a test for diverticulitis?Yes. There are a few tests your doctor can do to find out if you have diverticulitis. But tests are not always needed. If you do have a test, you might have a: CT scan A CT scan is a kind of imaging test. Imaging tests create pictures of the insideof your body. Abdominal ultrasound This test uses sound waves to create pictures of your intestines. How is diverticulitis treated?That depends on how bad your symptoms are. If you have mild symptoms, you will get antibiotics. You might also need to go on a clear liquid diet for a short time. That might be all the treatment you need. But if you have severe symptoms, or if you get a fever, you might need to stay in the hospital. There, you can get fluids and antibiotics through a thin tube that goes into your vein, called an "IV." That way you can stop eating and drinking until you get better. If you have a serious infection, the doctor might put a tube into your belly to drain the infection.In very bad cases, people need surgery to remove the part of the colon that is affected. A few months after your infection has been treated, your doctor might recommend that you have a procedure called a colonoscopy (figure 2). During a colonoscopy , the doctor can look directly inside yourcolon to get an idea of the number of diverticula in your colon and to find out where they are. At the same time, he or she can check for signs of cancer. Should I change my diet if I have had diverticulitis?If you have had diverticulitis, it's a good idea to eat a lot of fiber. Good sources of fiber include fruits, oats, beans, peas, and green leafy vegetables. If you do not already eat fiber-rich foods, wait until after your symptoms getbetter to start. You do not need to avoid seeds, nuts, popcorn, or other similar foods. All topics are updated as new evidence becomes available and our peer review process is complete. This topic retrieved from [employer] on: Aug 17, 2019. Topic 96103 Version 9.0 Release: 27.4.5 - C27.318 [employer] and/or its affiliates.All rights reserved. figure 1: Digestive system This drawing shows the organs in the body that process food. Together these organs are called "the digestive system," or "digestive tract." As food travels through this system, the body absorbs nutrients and water. Graphic 15598 Version 4.0 figure 2: Colonoscopy During a colonoscopy, you lie on your side and the doctor or nurse puts a thin tube with a camera into your anus (from behind). Then the doctor or nurse advances the tube into the rectum and colon. Thecamera sends pictures from inside your colon to a television screen. Graphic 96858 Version 5.0 Consumer Information Use and Disclaimer This information is not specific medical advice and does not replace information you receive from your health care provider. This is only a brief summary of general information. It does NOT include allinformation about conditions, illnesses, injuries, tests, procedures, treatments, therapies, discharge instructions or life-style choices that may apply to you. You must talk with your health care provider for complete information about your health and treatment options. This information should not beused to decide whether or not to accept your health care provider's advice, instructions or recommendations. Only your health care provider has the knowledge and training to provide advice that is right for you.The use of [employer] content is governed by the [employer] Terms of Use. 2019 [employer]. All rights reserved. Copyright 2019[employer]. and/or its affiliates.All rights reserved. documented in this encounter Progress Notes Buffy Leon MD - 10/15/2019 2:40 PM EST Nursing Notes: Sara Camilo LPN 10/15/2019 2:59 PM Signed Chief Complaint Patient presents with Other stomach cramps, thinks its diverticulitis flair up, started 5:30am this morning Chief Complaint: Ofelia Gallagher is a 44-y.o. male who presents for abdominal pain. He has a history of diverticulitis. History of Present Illness/ROS: Patient presents with abdominal pain. The pain is described as dull and sharp, and is 3/10 in intensity. Pain is located in the left lower quadrant without radiation. Onset was 8 hours ago. Symptoms have been gradually worsening since. Aggravating factors: going from sitting to standing. Alleviating factors: Gas. Last bowel movement this morning Associated symptoms: none. The patient denies chills, constipation, diarrhea, fever, headache, melena, nausea and vomiting. He is worried he has diverticulitis again and does not want to end up in the hospital. He did not like the cipro and flagyl last time, asked for an alternative, but says he will do what he must to get better. He did have his colonoscopy 08/17/[address] Diaz which did confirm sigmoid diverticulosis, no masses. He was hospitalized 06/09-06/12/19 with acute diverticulitis with microperforation. CT abdomen: 06/09/19: Acute sigmoid diverticulitis, microperforation. No masses or enlarged LN. Review of Systems - General ROS: negative for - chills or fever, unexpected weight changes ENT ROS: negative for - headaches, nasal congestion, but is a migraine sufferer. Respiratory ROS: negative for - cough, r shortness of breath Cardiovascular ROS: negative for - chest pain, dyspnea on exertion, edema or palpitations Gastrointestinal ROS: positive for mild left lower quadrant abdominal pain, but denies change in bowel habits, or black or bloody stools Genito-Urinary ROS: no dysuria, trouble voiding Past Medical History: Diagnosis Date BPH (benign prostatic hyperplasia) Dyslipidemia MIGRAINE 05/12/2008 diet restrictions have helped Viral wart on finger Past Surgical History: Procedure Laterality Date KNEE ARTHROSCOPY AGE 17 OPERATIONS ON NOSE AGE 17 nasal fracture repair LA REPAIR SLIDING INGUINAL HERNIA AGE 5 LEFT VASECTOMY Current Outpatient Medications: amoxicillin-clavulanic acid (AUGMENTIN 875 MG) 875-125 MG Oral Tab, Take 1 Tab by mouth TWICE DAILY for 10 days. 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 Social Needs Financial resource strain: Not on file Food insecurity Worry: Not on file Inability: Not on file Transportation needs Medical: Not on file Non-medical: Not on file Tobacco Use Smoking status: Never Smoker Smokeless tobacco: Never Used Substance and Sexual Activity Alcohol use: Yes Alcohol/week: 5.0 standard drinks Types: 5 Standard drinks or equivalent per week Drug use: No Sexual activity: Yes Partners: Female Lifestyle Physical activity Days per week: Not on file Minutes per session: Not on file Stress: Not on file Relationships Social connections Talks on phone: Not on file Gets together: Not on file Attends church service: Not on file Active member of club or organization: Not on file Attends meetings of clubs or organizations: Not on file Relationship status: Not on file Intimate partner violence Fear of current or ex partner: Not [...] 1 daughter born 2004 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 Family History Problem Relation Age of Onset Arthritis Mother GI Father diverticulitis Psychiatry Sister depression Hypertension Brother No Known Problems Daughter Psychiatry Son depression Heart Maternal Grandfather OR x 4, age 55 Stroke Paternal Grandmother PHYSICAL EXAMINATION: BP 132/74 (BP Location: Left arm, Patient Position: Sitting) | Pulse 76 | Temp 97.9 F (36.6 C) (Tympanic) | Resp 20 | Ht 5' 11" (1.803 m) | Wt 217 lb 6.4 oz (98.6 kg) | SpO2 99% | BMI 30.32 kg/m Physical Examination: General appearance - alert, well appearing, and in no distress Mental status - alert, oriented to person, place, and time, normal mood, behavior, speech, dress, motor activity, and thought processes Eyes - pupils equal and reactive, extraocular eye movements intact, sclera anicteric Ears - bilateral TM's and external ear canals normal Neck - supple, no cervical or supraclavicular adenopathy, carotids upstroke normal bilaterally, no bruits, thyroid exam: thyroid is normal in size without nodules or tenderness, no neck masses palpated. Chest/Lungs - clear to auscultation, no wheezes, rales or rhonchi, symmetric air entry, good aeration Heart - normal rate, regular rhythm, normal S1, S2, no murmurs, rubs, clicks or gallops Abdomen - soft, tender on palpation in the left lower quadrant but nondistended, no masses or hepatosplenomegaly, bowel sounds normal, normal to percussion, no guarding or rebound. No costervertebral angle tenderness Neurological - alert, oriented, normal speech, no gross focal findings or movement disorder noted Extremities - dorsalis pedis pulses normal, no pedal edema ASSESSMENT/PLAN: ICD-9-CM ICD-10-CM 1. Acute diverticulitis 562.11 K57.92 amoxicillin-clavulanic acid (AUGMENTIN 875 MG) 875-125 MG OralTab 2. Sigmoid diverticulosis 562.10 K57.30 Patient Instructions You appear to have early acute diverticulitis. Start Augmentin 875 mg twice daily (amoxicillin/clavulanic acid) for 10 days. Take with a little food as it can upset your stomach and cause diarrhea. If you worsen, have severe pain, fever over 101, then please report to the ER. Follow a liquid diet for 24 hours, then a bland diet, no raw vegetables for 1-2 weeks. Advance dietslowly as tolerated. Stay hydrated Patient Education Diverticulitis The Basics Written by the doctors and editors at [facility] What is diverticulitis?Diverticulitis is a disorder that can cause belly pain, fever, and problems with bowel movements. The food we eat travels from the stomach through a long tube called the intestine. The last part of that tube is the colon (figure 1). The colon sometimes has small pouches in its vega. These pouches are called "diverticula. " Many people who have these pouches have no symptoms. Diverticulitis happenswhen these pouches develop a small tear also known as a "microperforation ," which then become infected and cause symptoms. What are the symptoms of diverticulitis?The most common symptom of diverticulitis is pain, which is usually in the lower part of the belly. Other symptoms can include: Fever Constipation Diarrhea Nausea and vomiting Is there a test for diverticulitis?Yes. There are a few tests your doctor can do to find out if you have diverticulitis. But tests are not always needed. If you do have a test, you might have a: CT scan A CT scan is a kind of imaging test. Imaging tests create pictures of the insideof your body. Abdominal ultrasound This test uses sound waves to create pictures of your intestines. How is diverticulitis treated?That depends on how bad your symptoms are. If you have mild symptoms, you will get antibiotics. You might also need to go on a clear liquid diet for a short time. That might be all the treatment you need. But if you have severe symptoms, or if you get a fever, you might need to stay in the hospital. There, you can get fluids and antibiotics through a thin tube that goes into your vein, called an "IV." That way you can stop eating and drinking until you get better. If you have a serious infection, the doctor might put a tube into your belly to drain the infection.In very bad cases, people need surgery to remove the part of the colon that is affected. A few months after your infection has been treated, your doctor might recommend that you have a procedure called a colonoscopy (figure 2). During a colonoscopy , the doctor can look directly inside yourcolon to get an idea of the number of diverticula in your colon and to find out where they are. At the same time, he or she can check for signs of cancer. Should I change my diet if I have had diverticulitis?If you have had diverticulitis, it's a good idea to eat a lot of fiber. Good sources of fiber include fruits, oats, beans, peas, and green leafy vegetables. If you do not already eat fiber-rich foods, wait until after your symptoms getbetter to start. You do not need to avoid seeds, nuts, popcorn, or other similar foods. All topics are updated as new evidence becomes available and our peer review process is complete. This topic retrieved from [employer] on: Aug 17, 2019. Topic 75021 Version 9.0 Release: 27.4.5 - C27.318 [employer]. and/or its affiliates.All rights reserved. figure 1: Digestive system This drawing shows the organs in the body that process food. Together these organs are called "the digestive system," or "digestive tract." As food travels through this system, the body absorbs nutrients and water. Graphic 60884 Version 4.0 figure 2: Colonoscopy During a colonoscopy, you lie on your side and the doctor or nurse puts a thin tube with a camera into your anus (from behind). Then the doctor or nurse advances the tube into the rectum and colon. Thecamera sends pictures from inside your colon to a television screen. Graphic 59102 Version 5.0 Consumer Information Use and Disclaimer This information is not specific medical advice and does not replace information you receive from your health care provider. This is only a brief summary of general information. It does NOT include allinformation about conditions, illnesses, injuries, tests, procedures, treatments, therapies, discharge instructions or life-style choices that may apply to you. You must talk with your health care provider for complete information about your health and treatment options. This information should not beused to decide whether or not to accept your health care provider's advice, instructions or recommendations. Only your health care provider has the knowledge and training to provide advice that is right for you.The use of [employer] content is governed by the [employer] Terms of Use. 2019 [employer]. All rights reserved. Copyright 2019[employer]. and/or its affiliates.All rights reserved. Follow up next week. Author: Buffy Leon MD 10/15/2019 15:37 documented in this encounter Plan of Treatment Date Type Specialty Care Team Description 10/21/2019 Office Visit [facility] Buffy Leon MD [address] [place] [address] [phone] Health Maintenance Due Date Last Done Comments DIABETES SCREENING 1992 INFLUENZA VACCINE (#1) 2019 DEPRESSION SCREENING 10/15/2020 10/15/2019 LIPID DISORDER SCREENING 08/11/2023 08/11/2018, 08/11/2018, 12/12/2004 DTaP/Tdap/Td Vaccines (2 - 10/01/2028 10/01/2018 Tdap) HEPATITIS A IMMUNIZATION Aged Out No longer eligible based SERIES on patient's age to complete this topic HPV IMMUNIZATION SERIES Aged Out No longer eligible based on patient's age to complete this topic MENINGOCOCCAL VACCINE IMM Aged Out No longer eligible based on patient's age to complete this topic PNEUMOCOCCAL 0-64 YRS Aged Out No longer eligible based on patient's age to complete this topic documented as of this encounter Results Not on filedocumented in this encounter Visit Diagnoses Diagnosis Acute diverticulitis Sigmoid diverticulosis Diverticulosis of colon (without mention of hemorrhage) documented in this encounter Insurance Payer Benefit Plan / Subscriber ID Effective Dates Phone Address Type Group [employer] xxxxxxxxxxxx 2018-Present [employer] Name Account Type Relation to Date of Phone Billing Patient Address Ofelia Gallagher Personal/Family 1975 [phone] (Home) [facility] [phone] [place], [place] (Work) [id number] documented as of this encounter
--- NOTE | 2019-10-17 02:51 | ED ---
Abdominal Pain/Male - HPI Summary HPI Summary: Patient is a 44 y/o M w/ Hx of diverticulitis who presents to [facility] with complaints of LLQ abdominal pain and fever. He states that he was diagnosed with diverticulitis approximately 3-4 months ago. He states that his current presentation of pain onset 0530 10/15/19. Patient went to be evaluated by PCP who prescribed Augmentin and placed the patient on clear liquid diet. He was advised to call PCP if fever above 101 F was noted. The patient recorded a temp of 101.1 F, called PCP and was advised to come to ED for evaluation. He states that his current pain is "not terrible" and rates it 4/10 in intensity. He denies N/V/D but endorses decreased appetite. Patient took 600 mg Advil [employer]GER. Hx of migraines noted. NKDA reported. PSHx of hernia surgery, knee surgery, nasal surgery noted. He denies tobacco and substance usage but reports rare alcohol usage. FMHx of diverticulitis in father is endorsed. Home medications and allergies are reviewed. - History of Current Complaint Chief Complaint: EDAbdPain Stated Complaint: DIVERTICULITIS PER PT Time Seen by Provider: 10/17/19 02:20 Hx Obtained From: Patient Onset/Duration: Lasting Days, Still Present Timing: Constant, Lasting Days Severity Initially: Moderate Severity Currently: Moderate Pain Intensity: 4 Pain Scale Used: 0-10 Numeric Location: Discrete At: LLQ Associated Signs And Symptoms: Positive: Fever - reported, Decreased Appetite. Negative: Nausea, Vomiting, Diarrhea - Allergies/Home Medications Allergies/Adverse Reactions: Allergies Allergy/AdvReac Type Severity Reaction Status Date / Time No Known Allergies Allergy Verified 10/16/19 23:17 Home Medications: Home Medications Augmentin TAB 875* 1 tab PO BID 10/16/19 [History Confirmed 10/16/19] PMH/Surg Hx/FS Hx/Imm Hx Endocrine/Hematology History: Denies: Hx Anticoagulant Therapy, Hx Diabetes, Hx Thyroid Disease Cardiovascular History: Denies: Hx Hypertension Respiratory History: Denies: Hx Asthma, Hx Chronic Obstructive Pulmonary Disease (COPD) GI History: Reports: Other GI Disorders - diverticulitis Denies: Hx Ulcer Sensory History: Reports: Hx Contacts or Glasses - GLASSES Denies: Hx Hearing Aid Opthamlomology History: Reports: Hx Contacts or Glasses - GLASSES Neurological History: Reports: Hx Migraine - OCCASIONAL - Surgical History Surgery Procedure, Year, and Place: 30 YRS AGO HERNIA 8 YS OLD-. ARTH KNEE SURG - [place]. NASAL FX- [place]. vasectomy Hx Anesthesia Reactions: No Infectious Disease History: No Infectious Disease History: Denies: Hx Hepatitis, Hx Human Immunodeficiency Virus (HIV), Traveled Outside the [place] in Last 30 Days - Family History Known Family History: Positive: Other - FMHx of diverticulitis in father - Social History Alcohol Use: Rare Alcohol Amount: 2-3 DRINKS/WEEK Substance Use Type: Reports: None Smoking Status (MU): Never Smoked Tobacco Have You Smoked in the Last Year: No Review of Systems - ROS Summary Review of Systems Summary: Home Medications Medication Instructions Recorded Confirmed Type Ibuprofen [Advil] 200 mg PO Q6HR PRN 02/04/14 10/16/19 History Acetaminophen TAB* [Tylenol TAB*] 650 mg PO Q4H PRN 06/09/19 10/16/19 History ZOLMitriptan [Zolmitriptan] 2.5 mg PO Q2H PRN #10 tablet MDD 2 06/12/19 Rx Multivitamins/Minerals TAB* 1 tab PO DAILY 07/07/19 10/16/19 History [Theragran/minerals TAB*] [place]-3/Dha/Epa/Fish Oil [Fish Oil 1,000 mg PO DAILY 07/07/19 10/16/19 History 1,000 mg Softgel] Augmentin TAB 875* 1 tab PO BID 10/16/19 10/16/19 History Positive: Fever Gastrointestinal: Other - positive - decreased appetite Positive: Abdominal Pain. Negative: Vomiting, Diarrhea, Nausea All Other Systems Reviewed And Are Negative: Yes Physical Exam - Summary Physical Exam Summary: General: Well-developed, Well-nourished male. Moderate discomfort at rest. HEENT: Normocephalic, Atraumatic. Eyes: Conjuctiva normal, PERRL. Oropharynx: Clear, mucous membranes moist, (-) exudates. Neck: Soft, FROM, (-) lymphadenopathy, (-) thyromegaly, (-) JVD. Cardiovascular: Normal sinus rhythm, (-) murmur. Lungs: Clear to auscultation bilaterally (-) wheezes, (-) rales, (-) rhonchi. Abdomen: Soft, moderate LLQ tenderness with guarding but no rebound, non- distended, (-) organomegaly, normal bowel sounds. Back: (-) CVA tenderness Extremities: No edema. Skin: Warm, dry, (-) rash. Neuro: Alert and oriented x3, no focal deficits. Psychiatric: Flat affect. Triage Information Reviewed: Yes Vital Signs On Initial Exam: Initial Vitals Temp Pulse Resp BP Pulse Ox 99.2 F 96 18 128/85 99 10/16/19 23:17 10/16/19 23:17 10/16/19 23:17 10/16/19 23:17 10/16/19 23:17 Vital Signs Reviewed: Yes Procedures - Sedation Patient Received Moderate/Deep Sedation with Procedure: No Diagnostics - Vital Signs Vital Signs Temp Pulse Resp BP Pulse Ox 10/17/19 01:00 77 93 10/17/19 00:48 80 123/76 94 10/17/19 00:18 79 126/74 96 10/17/19 00:04 87 96 10/17/19 00:00 88 95 10/16/19 23:48 91 135/88 97 10/16/19 23:47 100 96 10/16/19 23:17 99.2 F 96 18 128/85 99 - Laboratory Result Diagrams: 10/17/19 02:41 10/17/19 02:41 Lab Statement: Any lab studies that have been ordered have been reviewed, and results considered in the medical decision making process. - CT ABD/PEL CT CT Interpretation Completed By: Radiologist Summary of CT Findings: IMPRESSION: There is focal wall thickening noted of the descending colon with surrounding. inflammatory changes and scattered diverticular disease, findings are. concerning for acute diverticulitis. Recommend nonemergent endoscopic. evaluation. THIS REPORT WAS REVIEWED BY ED PHYSICIAN. Re-Evaluation - Re-Evaluation First Eval Re-Evaluation Time: 04:56 Comment: Results of workup were discussed, patient to receive Zosyn and will be discharged to home. Patient will follow up with PCP. Abdominal Pain Male Course/Dx - Course Course Of Treatment: 44 year old male presents with LLQ abd pain. saw his pcp and was started on augmentin for presumed diverticulitis. has had 3 doses. had fever tonight > 101. was referred to ed. exam shows llq tenderness. not toxic appearing. ct scan shows acute diverticulitis, no abscess or perforation. given zosyn. continue augmentin. liquid diet. follow up with pcp. follow up sooner for any worsening symptoms. During ED course, patient received piperacillin sod /tazovactam sod 3.375 gm, 100 mls @ 200 mls/hr IVPB. - Diagnoses Provider Diagnoses: Diverticulitis Discharge ED - Sign-Out/Discharge Documenting (check all that apply): Patient Departure - discharge - Discharge Plan Condition: Stable Disposition: HOME Patient Education Materials: Diverticulitis (ED) Referrals: Buffy Leon MD [Primary Care Provider] - 3 Days Additional Instructions: PLEASE RETURN TO ED FOR ANY NEW OR CONCERNING SYMPTOMS. PLEASE FOLLOW UP WITH YOUR PRIMARY CARE PHYSICIAN WITHIN THREE DAYS. - Billing Disposition and Condition Condition: STABLE Disposition: Home - Attestation Statements Document Initiated by Benji: Yes Documenting Scribe: FRANCESCA CONSTANTINO Provider For Whom Benji is Documenting (Include Credential): ROMMEL HUBBARD MD Scribe Attestation: FRANCESCA Alex, scribed for ROMMEL HUBBARD MD on 10/17/19 at 0619. Scribe Documentation Reviewed: Yes Provider Attestation: The documentation as recorded by the FRANCESCA garza accurately reflects the service I personally performed and the decisions made by me, ROMMEL HUBBARD MD Status of Scribe Document: Viewed
[2019-10-17 02:59] LABS: ABS Lymphocytes 1.7 10^3/ul (1.0-4.8); ABS Monocytes 0.9 10^3/ul (0-0.8); ABS Neutrophils 9.2 10^3/ul (1.5-7.7); Eosinophil % 0.2 %; Hematocrit 40 % (42-52); Hemoglobin 14.4 g/dL (14.0-18.0); Lymphocyte % 14.2 %; Mean Corpuscular HGB Conc 36 g/dL (31-36); Mean Corpuscular Hemoglobin 33 pg (27-31); Mean Corpuscular Volume 90 fL (80-94); Mean Platelet Volume 8.4 fL (7.4-10.4); Platelet Count 186 10^3/uL (150-450); Red Blood Count 4.42 10^6 /uL (4.18-5.48); Red Cell Distribution Width 13 % (10-15); White Blood Count 11.9 10^3/uL (3.5-10.8)
[2019-10-17 03:01] LABS: INR 1.15 (0.82-1.09)
[2019-10-17 03:19] LABS: Albumin 4.2 g/dL (3.2-5.2); Albumin/Globulin Ratio 1.5 (1-3); BUN/Creatinine Ratio 13.2 (8-20); C Reactive Protein 56.68 mg/L (<8.01); Calcium 8.9 mg/dL (8.6-10.3); EGFR Non-African American 90.1 (>60); Globulin 2.8 g/dL (2-4); Potassium 3.6 mmol/L (3.5-5.0); Total Bilirubin 1.5 mg/dL (0.2-1.0)
[2019-10-17] MEDS ORDERED: Iohexol 300* (CONTRAST) 10 ML SDV IV ONE (03:39)
[2019-10-17] MEDS ORDERED: Piperacillin/Tazobac ADVAN(*) 3.375 GM in NS 0.9% 100 ML* 100 ML IVPB ONE (04:58)
[2019-10-17 06:11] VITALS: BP 106/57
== END 2019-10-17 06:05 | disposition home or self-care (01) ==
LOC: ED 23:15
DX: K57.92 Diverticulitis of intestine, part unspecified, without perforation or abscess without bleeding (principal); R10.32 Left lower quadrant pain; R50.9 Fever, unspecified; Z79.899 Other long term (current) drug therapy
CPT/HCPCS: 36415; 74177; 80053; 83605; 83690; 85025; 85610; 86140; 87040; 96365; 99284; J2543; Q9967